=== PATIENT | male | born 1985 | race Caucasian/White ===

== ENCOUNTER → 2020-09-28 | Outpatient (CLI) | payer OTHER ==
--- NOTE | 2020-09-28 13:33 | REP ---
INDICATION: PAIN IN RIGHT ANKLE AND JOINTS OF RIGHT FOOT COMPARISON: None. TECHNIQUE: Four views right ankle. FINDINGS: A small calcific density is seen just distal to the lateral malleolus and another is seen along the lateral aspect of the calcaneus. I suspect these represent avulsion fractures. There is no dislocation. The ankle mortise is anatomic. There is mild soft tissue swelling particularly laterally. No other abnormalities are seen. IMPRESSION: Small calcific densities, just distal to the lateral malleolus and another along the lateral aspect of the calcaneus, compatible with avulsion fractures of indeterminate age. Mild soft tissue swelling. <Electronically signed by Mike Bonilla > 09/28/20 [id number]
== END ==
LOC: M RAD 12:55
PROVIDERS: ATTEND Physician Assistant
DX: M25.571 Pain in right ankle and joints of right foot (principal)